=== PATIENT | female | born 1975 | race African-American/Black ===

== ENCOUNTER → 2016-10-09 | Outpatient (CLI) | payer OTHER ==
[~2016-10-09] MED LIST: CORICIDIN HBP1 EAC5 PO; COZAAR 25 MG TA25 M1 PO; IRON325 PO; LISINOPRIL20 MG PO; MULTIVITAMINS1 EAC7; PROAIR HFA8.5 GM INH; VITAMIN B-12250 MC2 PO; [UNRECOGNIZED DRUG - OTHER] GTT
== END ==
LOC: RAD 09:27
DX: R92.2 Inconclusive mammogram (principal)

== ENCOUNTER → 2017-03-01 | Outpatient (CLI) | payer OTHER ==
[~2017-03-01] MED LIST changes: +FISH OIL 1,001000 M2 PO; +VITAMIN E400 UNIT PO
[2017-03-01 13:52] VITALS: BP 123/65; BP 124/63
[2017-03-01 15:52] VITALS: BP 124/63; BP 130/68; BP 132/70
== END ==
LOC: OPONC 12:16
DX: D64.9 Anemia, unspecified (principal); R06.02 Shortness of breath; R53.83 Other fatigue
CPT/HCPCS: 91030